=== PATIENT | male | born 1945 | race Caucasian/White ===

== ENCOUNTER 2018-08-22 18:49 | Outpatient (CLI) | payer MEDICARE | END 2018-08-22 18:50 | disposition short-term general hospital (02) | LOC: EMS 18:49 | PROVIDERS: ATTEND Surgery | DX: M79.605 Pain in left leg (principal); G83.14 Monoplegia of lower limb affecting left nondominant side | CPT/HCPCS: A0425; A0427 ==

== ENCOUNTER 2019-03-08 16:05 | Outpatient (CLI) | payer MEDICARE | END 2019-03-08 16:06 | disposition short-term general hospital (02) | LOC: EMS 16:05 | PROVIDERS: ATTEND Surgery | DX: R53.1 Weakness (principal); R29.810 Facial weakness | CPT/HCPCS: A0425; A0427 ==

== ENCOUNTER 2019-08-11 12:08 | Outpatient (CLI) | payer MEDICARE | END 2019-08-11 12:09 | disposition short-term general hospital (02) | LOC: EMS 12:08 | PROVIDERS: ATTEND Surgery | DX: R29.810 Facial weakness (principal); R20.2 Paresthesia of skin; R11.2 Nausea with vomiting, unspecified | CPT/HCPCS: A0425; A0427 ==